=== PATIENT | female | born 1985 | race American Indian/Alaskan Native ===

== ENCOUNTER 2017-01-01 11:09 | Observation (INO) | payer BC, OTHER ==
[2017-01-01 11:58] VITALS: BMI 32.6
[2017-01-01] MEDS ORDERED: Lactated Ringer's 1,000 ML IV ONE ×2 (12:07→19:00)
[2017-01-01] MEDS ORDERED: Rocuronium 10 mg/ml (5 ml) ONE ×2 (15:15→18:37)
[2017-01-01] MEDS ORDERED: Midazolam 2 MG/2 ML VIAL ONE (15:15)
[2017-01-01] MEDS ORDERED: Neostigmine Methylsulfate 3mg/3ml Syringe IV ONE (15:15)
[2017-01-01] MEDS ORDERED: Propofol 10 mg/ml Inj (20 ML) ONE (15:15)
[2017-01-01] MEDS ORDERED: Succinylcholine 200 mg/10 ml Inj IV ONE (15:15)
--- NOTE | 2017-01-01 15:31 | CP.SDSHP ---
Same Day Surgery H & P - History Proposed Procedure: Laparoscopy left ovarian cystectomy Pre-Op Diagnosis: ovarian cyst - Allergies Allergies: Allergies No Known Allergies Allergy (Verified 01/01/17 11:58) - Physical Exam Vital Signs: Vital Signs 01/01/17 01/01/17 11:39 11:42 Temperature 98.3 F Pulse Rate 68 68 Respiratory 18 Rate Blood Pressure 118/78 O2 Sat by Pulse 97 Oximetry Mental Status: Alert & Oriented x3 Neuro: WNL Heart: WNL Lungs: WNL GI: WNL - {Optional Preform as Required} Breast: WNL Abdomen: WNL CT MANAGER: WNL : WNL ENT: WNL - Impression Pt. Evaluated Today:Candidate for Anesthesia & Procedure: Yes - Date & Time Date: 01/01/17 Time: 15:30 Short Stay Discharge - Short Stay Discharge Admitting Diagnosis/Reason for Visit: N83.202 N94.6 Referrals: Arianna Tubbs MD [Primary Care Provider] - Follow-up: F/U in 1-2 wks Additional Instructions (Diet, Activity): D/C when meets floor criteria
[2017-01-01] MEDS ORDERED: Sevoflurane - Inhalation Anesthetic Liq (250 ml) ONE (17:38)
[2017-01-01] MEDS ORDERED: Dexamethasone 4 mg/1 ml IVP PRN (19:29)
[2017-01-01] MEDS: HYDROmorphone 0.5 mg/0.5 ml ISec IVP PRN ×4 (19:47→20:20)
[2017-01-01] MEDS: Lactated Ringer's 1,000 ML IV SCH ×2 (20:00→23:16)
[2017-01-01] MEDS: Oxycodone/Acetaminophen 5/325 mg Tab PO PRN (23:21)
[2017-01-02] MEDS: Oxycodone/Acetaminophen 5/325 mg Tab PO PRN ×2 (03:29→08:24)
[2017-01-02 04:06] VITALS: PULSE 90
[2017-01-02] MEDS: Lactated Ringer's 1,000 ML IV SCH (04:43)
[2017-01-02 07:37] VITALS: BP 111/75; RESP 18; TEMP 98.4; O2SAT 98
--- NOTE | 2017-01-02 09:37 | CP.PCM.PN ---
Subjective - Date & Time of Evaluation Date of Evaluation: 01/02/17 Time of Evaluation: 09:15 - Subjective Subjective: She feels fine. no more nausea. Tolerated breakfast this AM Objective - Vital Signs/Intake and Output Vital Signs (last 24 hours): Temp Pulse Resp BP Pulse Ox 98.4 F 90 18 111/75 98 01/02/17 07:36 01/02/17 07:36 01/02/17 07:36 01/02/17 07:36 01/02/17 07:36 Intake and Output: 01/02/17 01/02/17 06:59 18:59 Intake Total 800 Balance 800 - Medications Medications: Current Medications Lactated Ringer's (Lactated Ringer's) 1,000 mls @ 125 mls/hr IV .Q8H KAYLA Last Admin: 01/02/17 04:43 Dose: Not Given Ibuprofen (Motrin Tab) 600 mg PO Q6 PRN PRN Reason: Pain, Mild (1-3) Ondansetron HCl (Zofran Inj) 4 mg IVP ONCE PRN PRN Reason: Nausea/Vomiting Last Admin: 01/01/17 23:14 Dose: 4 mg Oxycodone/Acetaminophen (Percocet 5/325 Mg Tab) 1 tab PO Q4 PRN PRN Reason: Pain, severe (8-10) Stop: 01/04/17 19:47 Last Admin: 01/02/17 08:24 Dose: 1 tab - Constitutional Appears: Well - Head Exam Head Exam: NORMAL INSPECTION - Respiratory Exam Respiratory Exam: NORMAL BREATHING PATTERN - Cardiovascular Exam Cardiovascular Exam: REGULAR RHYTHM - GI/Abdominal Exam GI & Abdominal Exam: Soft, Normal Bowel Sounds - Neurological Exam Neurological Exam: Alert, Awake, Oriented x3 Assessment and Plan - Assessment and Plan (Free Text) Assessment: S/P laparoscopy for ovarian cyst Nausea - postop Plan: will discahrge home...follow up [facility] in 1-2w
--- NOTE | 2017-01-02 09:39 | CP.PCM.DIS ---
Provider - Provider Date of Admission: 01/02/17 02:52 Attending physician: Mariann Anderson MD Primary care physician: Arianna Tubbs MD Time Spent in preparation of Discharge (in minutes): 10 Diagnosis - Discharge Diagnosis (1) Ovarian cyst Status: Acute Hospital Course - Hospital Course Hospital Course: Laparoscopic cystectomy...admitted overnight for nausea - Date & Time of H&P Date of H&P: 01/01/17 Discharge Exam - Head Exam Head Exam: NORMAL INSPECTION - GI/Abdominal Exam GI & Abdominal Exam: Normal Bowel Sounds, Unremarkable Additional comments: incisions intact Discharge Plan - Discharge Medications Prescriptions: oxyCODONE/Acetaminophen [Percocet 5/325 mg Tab] 1 ea PO Q4H PRN #5 tab PRN Reason: Pain, Moderate (4-7) Ondansetron HCl [Zofran] 4 mg PO Q8H #15 ml - Follow Up Plan Condition: GOOD Disposition: HOME/ ROUTINE Additional Instructions: Follow up with MD 1-2 weeks Referrals: Arianna Tubbs MD [Primary Care Provider] -
--- NOTE | 2017-02-08 08:49 | OP ---
PROCEDURE DATE: 01/01/2017 PREOPERATIVE DIAGNOSIS: Left ovarian cyst. POSTOPERATIVE DIAGNOSIS: Bilateral ovarian cysts. PROCEDURE: Laparoscopic resection of right ovarian cyst. SURGEON: Mariann Anderson MD RN HEART: Dr. Li. TYPE OF ANESTHESIA: General. ANESTHESIA ADMINISTERED BY: Dr. Petty IV FLUID INTAKE: 1600 mL ESTIMATED BLOOD LOSS: Minimal. URINE OUTPUT: 800 mL. COMPLICATIONS: None. CONDITION: Stable. PATHOLOGY SPECIMEN: Cyst wall. INDICATION: This is a 32-year-old nulliparous female who had initially presented for an annual physical exam, reported pelvic pain with her periods. On pelvic ultrasound, which had been ordered, it was reported on the ectopic ultrasound that the patient had a left ovary measured up to 10 cm. With it, 2 complex cysts, one measuring about 4.8 cm and one measuring about 6.3 cm. It was discussed with the patient that this was the most likely cause of her cyclical pelvic pain and that because of the extreme enlargement of her ovary that surgery was recommended. The patient was given the risks and benefits of laparoscopic surgery, possible laparotomy, given risks and benefits of surgery including risks of bleeding, infection, damage to surrounding organs. The patient was consented to surgery, signed informed consent. DESCRIPTION OF PROCEDURE: The patient was taken to OR. IV fluids were running and pneumatic stockings were applied to the lower extremity. General anesthesia was placed without difficulty. The patient was placed in the dorsal lithotomy position with Jim type stirrups with the knee bent at 30-degree angle. The examination under anesthesia revealed anteverted uterus and midline adnexal fullness. The patient was prepped and draped in the normal sterile fashion. A Patel catheter was inserted and the bladder was emptied. A weighted speculum was placed into the posterior fornix of vagina. The anterior lip of the cervix was grasped with single-tooth tenaculum and a uterine manipulator was introduced. Two Allis clamps were applied to elevate the base of the umbilicus and a vertical skin incision was made through the umbilical fold vertically. A Veress needle was inserted at a 45-degree angle and water test was done to ensure intraperitoneal placement. Pneumoperitoneum was established with CO2 gas with a pressure of 15 MHz and then a 10-mm trocar was inserted into the abdomen, intraabdominal placement was confirmed with the laparoscope. Intraabdominal survey revealed in fact bilateral ovarian cysts and not only left ovarian cyst. The left ovary looked to have a smaller cyst, about a 4 cm and the right ovary appeared to have a larger cyst, about 6 cm. Two 5-mm trocars were then inserted in the bilateral lower quadrants, about 8 cm within the line and in direct laparoscopic visualization. The Trendelenburg position was obtained to facilitate pelvic exposure. We then turned our attention to the larger of the bilateral cysts on the right side in order to begin dissection with the aid of a cautery device as well as a Harmonic scalpel. It was evident through beginnings of our dissection that with the amount of spill out and this was indeed most likely a dermoid cyst. We did our best to minimize the spillage of content and to resect the cyst in its entirety as best as possible and to suck out most of the spillage. We sent the cyst wall for pathology and we were able to preserve the right ovary in its entirety as well as resecting out the cyst wall as best as possible. There was minimal bleeding at the end of the procedure. We were able to cauterize whatever bleeding was evident and we were able to remove out the cyst in bits and pieces. We irrigated the abdomen multiple times with copious amounts of lactated Ringers in order to suction out all of the contents of the dermoid cyst. At this point, now the case was extended over 2-1/2 hours and the patient was under anesthesia this entire time. The left cyst was much smaller and it did not look hardened in its appearance. We decided at this point benefit from termination of this procedure, I ordered to not continue to put her through continued anesthesia and would benefit from continued watching long-term to see growth of the ovary over long-term. Again, we irrigated and inspected the right ovary and appeared to be hemostatic and we were able to suction out the contents of the dermoid as best as possible. We decided to terminate the case and we removed all the instruments from the abdomen, closed the 10 mm port with 0 Vicryl on an UR needle and the skin was closed with Dermabond and 4-0 Monocryl. Sponge, lap and needle counts were correct x3. The patient was taken to recovery room in stable condition. She was given a prescription for Percocet tablets and instructions to followup in the office in 1 to 2 weeks for postop check. There were no other complications and Dr. Li assisted in all aspects of surgery including retraction, assisting in retraction of the ovary, removal of cyst contents and in all the aspects of surgery. Mariann Anderson MD
== END 2017-01-02 13:04 | disposition home or self-care (01) ==
LOC: H.OPSURG 11:09 → H.MEDSURG1 22:00 → INTOOBSV 01-02 02:52 → H.OPSURG 01-02 02:56
PROVIDERS: ADMIT Obstetrics & Gynecology; ATTEND Obstetrics & Gynecology
DX: N83.201 Unspecified ovarian cyst, right side (principal); R11.0 Nausea
CPT/HCPCS: 58662; 88304; 88305; G0378; J0330; J1100; J1170; J1885; J2001; J2250; J2405; J2704; J2710; J2765; J3010; J7030; J7120